=== PATIENT | male | born 2005 | race Hispanic/Latino ===

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

== ENCOUNTER → 2023-03-22 | Emergency (ER) | payer OTHER, SELFPAY ==
--- OUTSIDE RECORDS SUMMARY | 2023-03-22 18:13 | XMS REPORT | Continuity of Care Document ---
Author Name Unknown Address [address] [place] [address] [facility] Address 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 Name Role Phone ANN ESDRAS Primary Care Physician Unavailab Yani Romano Attending Clinician [phone] YANI QIU Attending Clinician Unavailable John Maurer MD Attending Clinician [phone] JOHN MAURER Attending Clinician Unavailabl e Doctor Unassigned, [place] Attending Clinician U navailable Only, Adc Test Attending Clinician Unavailable John Maurer MD Admitting Clinician [phone] JOHN MAURER Admitting Clinician Unavailabl e Payers Payer Name Policy Type Policy Number Effective Date Expirati on Date Source Problems Condition Name Condition Details Condition Category Status Onset Date Resolution Date Last Treatment Date Treating Clinician Comments Source Acute torn meniscus of knee, unspecifie d laterality , initial encounter Acute torn meniscus of knee, unspecifie d laterality , initial encounter Disease Active 06-11 00:00: 00 Overview: Added automatic ally from request for surgery [id number] [facility] No known active problems No known active problems Disease [facility] Allergies, Adverse Reactions, Alerts Allergy Name Allergy Type Status Severity Reaction(s) Onset Date Inactive Date Treating Clinician Comments Source NO KNOWN ALLERGIE S Drug Class Active [facility] Social History Social Habit Start Date Stop Date Quantity Comments Source Exposure to SARS-CoV-2 (event) Not sure [facility] History SDOH Alcohol Std Drinks [facility] History SDOH Alcohol Binge [facility] Tobacco use and exposure 2020-07-08 00:00:00 2020-07-08 00:00:[address] [facility] Alcohol intake 2020-07-08 00:00:00 2020-07-08 00:00:00 Lifetime non-drinker (finding) [facility] History SDOH Alcohol Frequency 2020-05-21 00:00:00 2020-05-21 00:00:[address] [facility] Sex Assigned At 2005 00:00:00 2005 00:00:[address] [facility] Smoking Status Start Date Stop Date Source Unknown [facility] Medications Ordered Medication Name Filled Medication Name Start Date Stop Date Current Medication? Ordering Clinician Indication Dosage Frequency Signature (SIG) Comments Components Source lactated ringers IV infusion 1,000 mL 06-21 18:30: 00 Yes 1000mL at 75 mL/hr, 1,000 mL, IV Infusion, CONTINUOUS , Starting Sun06/21/20 at 1330, Until Discontinu ed, Routine, PACU [facility] FENTanyl PF (SUBLIMAZE (PF)) injection 25 mcg 06-21 18:23: 23 Yes 25ug 25 mcg, Slow IV Push, Q5MIN PRN, 4 doses, Starting Sun06/21/20 at 1323, Until Discontinu ed, Routine, Pain (scale 4-6), PACU [facility] ondansetron (ZOFRAN (PF)) injection 4 mg 06-21 18:23: 23 Yes 4mg 4 mg, Slow IV Push, PRN, 1 dose, Starting Sun06/21/20 at 1323, Until Discontinu ed, Routine, Nausea and Vomiting (N/V), PACU [facility] lactated Ringers irrigation solution 06-21 17:37: 00 Yes PRN, Starting Sun06/21/20 at 1237, Until Discontinu ed, Routine, Intra-op [facility] bupivacaine -epinephrin e-pf (SENSORCAIN E W/EPINEPHRI NE) 0.25 %-1:200,000 injection 06-21 17:36: 00 Yes PRN, Starting Sun06/21/20 at 1236, Until Discontinu ed, Routine, Intra-op [facility] lactated ringers IV infusion 1,000 mL 06-21 14:00: 00 06-21 14:24 :00 No 1000mL at 42 mL/hr, 1,000 mL, IV Infusion, ONCE, 1 dose, Sun06/21/20 at 0900, Routine, DSU Pre-op [facility] aspirin 325 mg tablet 06-21 00:00: 00 07-20 04:59 :00 No [id number] 325mg Take 1 tablet by mouth 2 (two) times daily with meals for 28 days. [facility] aspirin 325 mg tablet 06-21 00:00: 00 07-20 04:59 :00 No [id number] 325mg Take 1 tablet by mouth 2 (two) times daily with meals for 28 days. [facility] aspirin 325 mg tablet 06-21 00:00: 00 07-20 04:59 :00 No [id number] 325mg Take 1 tablet by mouth 2 (two) times daily with meals for 28 days. [facility] aspirin 325 mg tablet 06-21 00:00: 00 07-20 04:59 :00 No [id number] 325mg Take 1 tablet by mouth 2 (two) times daily with meals for 28 days. [facility] aspirin 325 mg tablet 06-21 00:00: 00 07-20 04:59 :00 No [id number] 325mg Take 1 tablet by mouth 2 (two) times daily with meals for 28 days. [facility] aspirin 325 mg tablet 06-21 00:00: 00 07-20 04:59 :00 No [id number] 325mg Take 1 tablet by mouth 2 (two) times daily with meals for 28 days. [facility] acetaminoph en-codeine 300-30 mg tablet 06-21 00:00: 00 06-29 04:59 :00 No 4647 1{tbl} Take 1 tablet by mouth every 6 (six) hours as needed for Pain (scale 4-6) or Pain (scale 7-10) for up to 7 days. Indication s: acute pain [facility] acetaminoph en-codeine 300-30 mg tablet 3-29 00:00: 00 06-29 04:59 :00 No 4647 1{tbl} Take 1 tablet by mouth every 6 (six) hours as needed for Pain (scale 4-6) or Pain (scale 7-10) for up to 7 days. Indication s: acute pain [facility] metFORMIN 500 mg tablet 2-04 00:00: 00 Yes 500mg Take 500 mg by mouth 2 (two) times daily with meals. [facility] metFORMIN 500 mg tablet 04-29 00:00: 00 Yes 500mg Take 500 mg by mouth 2 (two) times daily with meals. [facility] metFORMIN 500 mg tablet 04-29 00:00: 00 Yes 500mg Take 500 mg by mouth 2 (two) times daily with meals. [facility] metFORMIN 500 mg tablet 2 00:00: 00 Yes 500mg Take 500 mg by mouth 2 (two) times daily with meals. [facility] metFORMIN 500 mg tablet 04-29 00:00: 00 Yes 500mg Take 500 mg by mouth 2 (two) times daily with meals. [facility] metFORMIN 500 mg tablet 04-29 00:00: 00 Yes 500mg Take 500 mg by mouth 2 (two) times daily with meals. [facility] metFORMIN 500 mg tablet 2 00:00: 00 Yes 500mg Take 500 mg by mouth 2 (two) times daily with meals. [facility] metFORMIN 500 mg tablet 2- 00:00: 00 Yes 500mg Take 500 mg by mouth 2 (two) times daily with meals. [facility] metFORMIN 500 mg tablet 0 2-04 00:00: 00 Yes 500mg Take 500 mg by mouth 2 (two) times daily with meals. [facility] metFORMIN 500 mg tablet 04-29 00:00: 00 Yes 500mg Take 500 mg by mouth 2 (two) times daily with meals. [facility] metFORMIN 500 mg tablet 04-29 00:00: 00 Yes 500mg Take 500 mg by mouth 2 (two) times daily with meals. [facility] metFORMIN 500 mg tablet 04-29 00:00: 00 Yes 500mg Take 500 mg by mouth 2 (two) times daily with meals. [facility] metFORMIN 500 mg tablet 04-29 00:00: 00 Yes 500mg Take 500 mg by mouth 2 (two) times daily with meals. [facility] metFORMIN 500 mg tablet 04-29 00:00: 00 Yes 500mg Take 500 mg by mouth 2 (two) times daily with meals. [facility] metFORMIN 500 mg tablet 04-29 00:00: 00 Yes 500mg Take 500 mg by mouth 2 (two) times daily with meals. [facility] metFORMIN 500 mg tablet 04-29 00:00: 00 Yes 500mg Take 500 mg by mouth 2 (two) times daily with meals. [facility] Vital Signs Vital Name Observation Time Observation Value Comments S alejandrochris Systolic blood pressure 2020-07-08 15:59:00 129 mm[Hg] [facility] Diastolic blood pressure 2020-07-08 15:59:00 77 mm[Hg] [facility] Heart rate 2020-07-08 15:59:00 72 /min [facility] Body height 2020-07-08 15:59:00 177.8 cm [facility] Body weight 2020-07-08 15:59:00 99.791 kg [facility] BMI 2020-07-08 15:59:00 31.57 kg/m2 [facility] Systolic blood pressure 2020-06-21 19:25:00 124 mm[Hg] [facility] Diastolic blood pressure 2020-06-21 19:25:00 67 mm[Hg] [facility] Heart rate 2020-06-21 19:25:00 74 /min [facility] Oxygen saturation in Arterial blood by Pulse oximetry 2020-06-21 19:25:00 100 /min [facility] Respiratory rate 2020-06-21 19:20:00 18 /min [facility] Body temperature 2020-06-21 14:06:[address] [facility] Body height 2020-06-17 15:14:00 177.8 cm [facility] Body weight 2020-06-17 15:14:00 99.8 kg [facility] BMI 2020-06-17 15:14:00 31.57 kg/m2 [facility] Systolic blood pressure 2020-06-11 14:24:00 136 mm[Hg] [facility] Diastolic blood pressure 2020-06-11 14:24:00 86 mm[Hg] [facility] Heart rate 2020-06-11 14:24:00 69 /min [facility] Body height 2020-06-11 14:24:00 177.8 cm [facility] Body weight 2020-06-11 14:24:00 99.791 kg [facility] BMI 2020-06-11 14:24:00 31.57 kg/m2 [facility] Systolic blood pressure 2020-05-21 14:41:00 131 mm[Hg] [facility] Diastolic blood pressure 2020-05-21 14:41:00 81 mm[Hg] [facility] Body height 2020-05-21 14:41:00 177.8 cm [facility] Body weight 2020-05-21 14:41:00 101.787 kg [facility] BMI 2020-05-21 14:41:00 32.20 kg/m2 [facility] Procedures Procedure Date / Time Performed Performing Clinicia n Source POCT GLUCOSE(AGE >30DAYS) 2020-06-21 14:20:[address] [facility] DAY SURGERY - ADC 2020-06-21 05:01:00 Doctor Katie ssigned, [place] [facility] ASSIGNMENT OF BENEFITS 2020-06-18 19:21:50 Docto r Unassigned, [place] [facility] DSU PRE-OP 2020-06-14 05:01:00 Doctor Unass igned, [place] [facility] DSU PRE-OP 2020-06-11 05:01:00 Doctor Unass igned, [place] [facility] MR KNEE RIGHT WO CONTRAST 2020-06-08 16:06:[address] [facility] REFERRAL- REQUEST/RESPONSE 2020-06-02 06:01:00 Doctor Unassigned, [place] [facility] ASSIGNMENT OF BENEFITS 2020-05-21 14:35:34 Bonifacioto r Unassigned, [place] [facility] Encounters Start Date/Time End Date/Time Encounter Type Admission Type Attending [facility] Facility Care Department Encounter ID Source 2023-02-12 17:37:30 2023-02-12 17:37:30 Outpatient [facility] [id number] Cast[place] 2022-12-16 09:59:07 2022-12-16 09:59:07 Outpatient [facility] [id number] Maykel Foreman Castillo 2022-10-04 16:03:58 2022-10-04 16:03:58 Outpatient [facility] [id number] Maykel Foreman Castillo 2022-04-14 17:39:52 2022-04-14 17:39:52 Outpatient [facility] [id number] Maykel Foreman Castillo 2022-04-12 10:59:09 2022-04-12 10:59:09 Outpatient [facility] [id number] Myakel Foreman Castillo 2020-07-08 10:46:54 2020-07-08 11:01:54 Office Visit Yani [facility] [place] [id number] 350.1.13.10 4.2.7.2.686 [id number] [facility] 2020-07-08 11:00:00 2020-07-08 11:00:00 Outpatient YANI JALLOH [facility] [id number] [facility] 2020-07-08 00:00:00 2020-07-08 00:00:00 [facility] [place] 1.2840.114 350.1.13.10 4.2.7.2.686 [id number] [facility] 2020-07-08 00:00:00 2020-07-08 00:00:00 Letter (Out) Lazarus [facility] huyen Azul 1.20.114 350.1.13.10 4.2.7.2.686 [id number] [facility] 2020-07-05 14:30:00 2020-07-05 14:30:00 Outpatient R YANI QIU [facility] [id number] [facility] 2020-06-21 08:55:00 2020-06-21 14:50:00 Hospital Encounter oJhn Maurer [facility] 1..114 350.1.13.10 4.2.7.2.686 [id number] [facility] 2020-06-21 08:55:00 2020-06-21 14:50:00 Outpatient R JOHN MAURER [facility] SOR [id number] [facility] 2020-06-21 00:00:00 2020-06-21 00:00:00 Orders Only Doctor Unassigned, [place] [facility] 1..114 350.1.13.10 4.2.7.2.686 [id number] [facility] 2020-06-18 14:23:42 2020-06-18 14:38:42 Laboratory Only Only, Adc Test John Maurer [facility] [id number] 350.1.13.10 4.2.7.2.686 [id number] [facility] 2020-06-18 12:00:00 2020-06-18 12:00:00 Outpatient R JOHN MAURER [facility] [id number] [facility] 2020-06-18 00:00:00 2020-06-18 00:00:00 Orders Only Doctor Unassigned, [place] [facility] 1.2.840.114 350.1.13.10 4.2.7.2.686 [id number] [facility] 2020-06-14 00:00:00 2020-06-14 00:00:00 Orders Only Doctor Unassigned, [place] [facility] 1.2.840.114 350.1.13.10 4.2.7.2.686 [id number] [facility] 2020-06-11 09:18:23 2020-06-11 09:33:23 Office Visit Yani Qiu [facility] [id number] 350.1.13.10 4.2.7.2.686 [id number] [facility] 2020-06-11 09:15:00 2020-06-11 09:15:00 Outpatient YANI JALLOH [facility] [id number] [facility] 2020-06-08 10:10:08 2020-06-08 23:59:00 Outpatient R JOHN MAURER [facility] [id number] [facility] 2020-06-08 10:00:00 2020-06-08 23:59:00 Hospital Encounter John Maurer [facility] [id number] 350.1.13.10 4.2.7.2.686 [id number] [facility] 2020-06-02 00:00:00 2020-06-02 00:00:00 Orders Only Doctor Unassigned, [place] [facility] 1.2.840.114 350.1.13.10 4.2.7.2.686 [id number] [facility] 2020-05-24 00:00:00 2020-05-24 00:00:00 Telephone John Maurer [facility]en Azul 1.2.840.114 350.1.13.10 4.2.7.2.686 [id number] [facility] 2020-05-21 08:36:26 2020-05-21 09:04:04 Office Visit John Maurer [facility] 1.2.840.114 350.1.13.10 4.2.7.2.686 [id number] [facility] 2020-05-21 08:45:00 2020-05-21 08:45:00 Outpatient R JOHN MAURER [facility] [id number] [facility] 2020-05-21 00:00:00 2020-05-21 00:00:00 Orders Only Doctor Unassigned, [place] [facility] [id number] 350.1.13.10 4.2.7.2.686 [id number] [facility] Results Test Description Test Time Test Comments Results Result Co mments Source POCT [id number] 14:20:00* Test Item Value Reference Range Interpretation Comme nts POCT Glu (age>30days) (test code = 3342) 127 mg/dL 70-110 A Lab Interpretation (test cod e = [id number]) [facility]normal [facility] [id number] 16:46:24 Complex full-thickness tear of the lateral meniscus body with a 1.3 cmlaterally extruded fragment. Minimal stress-induced marrow edema in the lateral femoral/tibial condylesand peripheral edges of the medial femoral condyle. The medial meniscus and the [...] No solid soft tissue masses are present. Demb, Radiant Results Inft User - 06/08/2020 11:47 AM CDTEXAM: MRI RIGHT KNEE WITHOUT CONTOURHISTORY: 15-year-old male complaining of chronic knee pain for one month.COMPARISON: NoneTECHNIQUE AND FINDINGS:1.5Tmultiplanar mul tiweighted MR imaging of the right knee was [...] the medial femoral condyle.The medial meniscus and thechondral surfaces are intact.The cruciate ligaments are intact.Preliminary Report Dictated by Resident: Minh Ha MD., have reviewed this study and agree with theabove report.[facility]
[2023-03-22 19:38] LABS: SARS-CoV-2 Antigen Rapid Res Negative (Negative)
--- NOTE | 2023-03-22 19:49 | RAD REPORT ---
EXAM DESCRIPTION: RAD - Chest Single View - 03/22/2023 7:39 pm CLINICAL HISTORY: PRODUCTIVE COUGH COMPARISON: No comparisons FINDINGS: Lines: None. Lungs: No evidence of edema or pneumonia. Pleural: No significant pleural effusions or pneumothorax. Cardiac: The heart size is within normal limits. Mediastinum: Within normal limits. Bones: No acute fractures. Other: None IMPRESSION: No acute cardiopulmonary disease.
--- NOTE | 2023-03-22 19:52 | EDPHYS ---
Physician Documentation [facility] Name: Chiki Downey Age: 18 yrs Sex: Male : 2005 Arrival Date: 03/22/2023 Time: 18:09 Bed 18 Private MD: ED Physician Antonio Hills HPI: 03/22 19:44 This 18 yrs old Male presents to ER via Ambulatory with complaints of ec2 Shortness Of Breath. 19:44 Patient arrives today for 2 days of URI signs and symptoms. Has having some congestion ec2 and cough as well as some bilateral rib pain. Reports that the pain is worse with positional movements. Patient reports pain with breathing as well. Patient denies any nausea or vomiting. Reports sick contacts.. Historical: - Allergies: 18:29 No Known Allergies; cm10 - PMHx: 18:29 diabetes mellitus; cm10 - Immunization history:: Adult Immunizations up to date. - Social history:: Smoking status: Patient reports the use of cigarette tobacco products, denies chronic smoking, but will smoke occasionally, Reported history of juuling and/or vaping. ROS: 19:44 Constitutional: as per hpi ec2 Exam: 19:44 Constitutional: GEN: NAD Head: atraumatic Eyes: EOMI Ears: External ears are ec2 normal. CV: regular rate LUNGS: no respiratory distress, no wheezes, rales, or rhonchi ABD: non-distended SKIN: no evidence of rashes MSK: no evidence of trauma, reproducible TTP to the bilateral ribs and upper chest wall. NEURO: moves all extremities equally Vital Signs: 18:29 BP 130 / 80; Pulse 82; Resp 18 S; Temp 97.9(O); Pulse Ox 100% on R/A; Weight 99.79 kg; cm10 Height 5 ft. 11 in. ; Pain 3/10; 19:00 BP 124 / 73; Pulse 86; Resp 16; Pulse Ox 99% on R/A; km8 19:30 BP 125 / 79; Pulse 76; Resp 16; Pulse Ox 99% on R/A; km8 18:29 Body Mass Index 30.68 (99.79 kg, 180.34 cm) cm10 18:29 Pain Scale: Adult cm10 [place] Coma Score: 19:06 Eye Response: spontaneous(4). Motor Response: obeys commands(6). Verbal Response: km8 oriented(5). Total: 15. MDM: 18:17 Patient medically screened. ec2 19:44 Data reviewed: vital signs. ED course: Patient arrives today for evaluation of chest ec2 pain and URI symptoms. Examination remarkable for well-appearing nontoxic individual is otherwise in no acute distress. Will suspicion for ACS or PE given the patient's general well appearance. Will obtain viral swab and EKG and chest x-ray.. 19:46 ED course: EKG independently reviewed and interpreted by me, shows normal sinus rhythm, ec2 rate of 76, no acute ST segment elevations, intervals are nonconcerning. . 19:48 ED course: Chest x-ray independently reviewed and interpreted by me, shows no acute ec2 intrathoracic process.. ED course: On reassessment patient is well-appearing in no acute distress. Will discharge home, instructed in biih-csh-ntsatza medications for likely costochondritis secondary to viral infection. Will also prescribe as needed albuterol inhaler.. 03/22 18:35 Order name: Influenza Screen (a \T\ B); Complete Time: 19:44 ec2 03/22 18:35 Order name: SARS RAPID; Complete Time: 19:44 ec2 03/22 18:35 Order name: CXR XRAY; Complete Time: 19:50 ec2 03/22 18:35 Order name: EKG; Complete Time: 18:35 ec2 03/22 18:35 Order name: EKG - Nurse/Tech; Complete Time: 19:53 ec2 Administered Medications: No medications were administered Disposition Summary: 03/22/23 19:52 Discharge Ordered Notes: Location: Home ec2 Condition: Stable ec2 Diagnosis - Viral infection, unspecified ec2 - Costochondritis ec2 Followup: ec2 - With: Private Physician - When: - Reason: Recheck today's complaints Discharge Instructions: - Discharge Summary Sheet ec2 - Costochondritis, Piow-fr-Zblo ec2 Forms: - Medication Reconciliation Form ec2 - Thank You Letter ec2 - Antibiotic Education ec2 - Prescription Opioid Use ec2 - Patient Portal Instructions ec2 - Leadership Thank You Letter ec2 Prescriptions: - albuterol sulfate 90 mcg/actuation Inhalation HFA Aerosol Inhaler - inhale 1 inhalation INHALATION route every 4 to 6 hours as needed for ec2 bronchospasm; administer via ventilator; 90 microgram; Refills: 0, Product Selection Permitted Signatures: Dispatcher [employer] Barbara Huerta RN RN cm10 Antonio Hills MD MD ec2
--- NOTE | 2023-03-22 19:52 | ER ---
Nurse's Notes [facility] Name: Chiki Downey Age: 18 yrs Sex: Male : 2005 Arrival Date: 03/22/2023 Time: 18:09 Bed 18 Private MD: Diagnosis: Viral infection, unspecified;Costochondritis Presentation: 03/22 18:29 Chief complaint: Patient states: rib pain that is worse with inspiration. Pt states cm10 that he has also been feeling more fatigued. Coronavirus screen: Vaccine status: Patient reports being unvaccinated. Client denies travel out of the [place] in the last 14 days. Ebola Screen: Patient denies travel to an Ebola-affected area in the 21 days before illness onset. No symptoms or risks identified at this time. Initial Sepsis Screen: Does the patient meet any 2 criteria? No. Patient's initial sepsis screen is negative. Does the patient have a suspected source of infection? No. Patient's initial sepsis screen is negative. Risk Assessment: Do you want to hurt yourself or someone else? Patient reports no desire to harm self or others. Onset of symptoms was March 22, 2023. 18:29 Method Of Arrival: Ambulatory cm10 18:29 Acuity: CHACHA 3 cm10 Triage Assessment: 18:31 General: Appears in no apparent distress. comfortable, Behavior is calm, cooperative. cm10 Pain: Complains of pain in chest. Neuro: No deficits noted. Level of Consciousness is awake, alert, obeys commands, Oriented to person, place, time, situation. Cardiovascular: No deficits noted. Patient's skin is warm and dry. Respiratory: No deficits noted. Reports pain with movement pain with respiration Airway Respiratory effort is even, unlabored, Respiratory pattern is regular, symmetrical, Onset: The symptoms/episode began/occurred gradually. Respiratory: the patient has mild shortness of breath. GI: No deficits noted. No signs and/or symptoms were reported involving the gastrointestinal system. : No deficits noted. No signs and/or symptoms were reported regarding the genitourinary system. Derm: No deficits noted. No signs and/or symptoms reported regarding the dermatologic system. Skin is intact, Skin is pink, warm \T\ dry. Historical: - Allergies: 18:29 No Known Allergies; cm10 - PMHx: 18:29 diabetes mellitus; cm10 - Immunization history:: Adult Immunizations up to date. - Social history:: Smoking status: Patient reports the use of cigarette tobacco products, denies chronic smoking, but will smoke occasionally, Reported history of juuling and/or vaping. Screenin:06 [facility] ED Fall Risk Assessment (Adult) History of falling in the last 3 months, km8 including since admission No falls in past 3 months (0 pts) Confusion or Disorientation No (0 pts) Intoxicated or Sedated No (0 pts) Impaired Gait No (0 pts) Mobility Assist Device Used No (0 pt) Altered Elimination No (0 pt) Score/Fall Risk Level 0 - 2 = Low Risk Oriented to surroundings, Maintained a safe environment, Educated pt \T\ family on fall prevention, incl call for assistance when getting out of bed, Assessed \T\ reinforced patient's understanding of fall precautions. Abuse screen: Denies threats or abuse. Denies injuries from another. Nutritional screening: No deficits noted. Tuberculosis screening: No symptoms or risk factors identified. Assessment: 19:06 General: Appears in no apparent distress. comfortable, Behavior is calm, cooperative, km8 appropriate for age. Pain: Complains of pain in chest Pain currently is 0 out of 10 on a pain scale. Neuro: Reyes Agitation-Sedation Scale (RASS): 0 - Alert and Calm Level of Consciousness is awake, alert, obeys commands, Oriented to person, place, time, situation. Cardiovascular: Reports chest pain, lightheadedness, shortness of breath, no chest pain at this time Capillary refill < 3 seconds Patient's skin is warm and dry. Rhythm is sinus rhythm Chest pain began 2 days ago is aggravated by activity, is alleviated by position. Respiratory: Airway is patent Respiratory effort is even, unlabored, Respiratory pattern is regular, symmetrical, Breath sounds are clear bilaterally. GI: No signs and/or symptoms were reported involving the gastrointestinal system. : No signs and/or symptoms were reported regarding the genitourinary system. EENT: No signs and/or symptoms were reported regarding the EENT system. Derm: Skin is intact, Skin is dry, Skin is pink, warm \T\ dry. Skin temperature is warm. Musculoskeletal: No signs and/or symptoms reported regarding the musculoskeletal system. Range of motion: intact in all extremities. Vital Signs: 18:29 BP 130 / 80; Pulse 82; Resp 18 S; Temp 97.9(O); Pulse Ox 100% on R/A; Weight 99.79 kg; cm10 Height 5 ft. 11 in. ; Pain 3/10; 19:00 BP 124 / 73; Pulse 86; Resp 16; Pulse Ox 99% on R/A; km8 19:30 BP 125 / 79; Pulse 76; Resp 16; Pulse Ox 99% on R/A; km8 18:29 Body Mass Index 30.68 (99.79 kg, 180.34 cm) cm10 18:29 Pain Scale: Adult cm10 [place] Coma Score: 19:06 Eye Response: spontaneous(4). Motor Response: obeys commands(6). Verbal Response: km8 oriented(5). Total: 15. ED Course: 18:12 Patient arrived in ED. ae5 18:17 Antonio Hills MD is Attending Physician. ec2 18:30 Triage completed. cm10 18:30 Arm band placed on Patient placed in waiting room. cm10 19:06 Patient has correct armband on for positive identification. Bed in low position. Call km8 light in reach. Side rails up X 1. Pulse ox on. NIBP on. Door closed. Noise minimized. 19:06 No provider procedures requiring assistance completed. Patient maintains SpO2 km8 saturation greater than 95% on room air. 19:41 CXR XRAY In Process Unspecified. EDMS 20:17 Provided Education on: d/c teaching. km8 20:17 Patient did not have IV access during this emergency room visit. km8 Administered Medications: No medications were administered Medication: 18:34 VIS not applicable for this client. cm10 Outcome: 19:52 Discharge ordered by . ec2 20:17 Discharged to home ambulatory, km8 20:17 Condition: good 20:17 Discharge instructions given to patient, Instructed on discharge instructions, follow up and referral plans. medication usage, Demonstrated understanding of instructions, follow-up care, medications, Prescriptions given X 1, 20:18 Patient left the ED. km8 Signatures: Dispatcher [employer] Barbara Huerta, RN RN cm10 Antonio Hills MD MD ec2 Angelic Olivo RN RN km8 Rachna Collier ae5
[2023-03-22 23:05] VITALS: BP 125/79; TEMP 97.9; O2SAT 99
--- NOTE | 2023-03-23 15:29 | EKG ---
Test Date: 2023-03-22 Test Time: 19:34:29 Mr Teacher: AUGUSTO MEASUREMENT RESULTS: Intervals: Rate: 76 CO: 140 QRSD: 92 QT: 356 QTc: 400 Velma: P: 34 CO: 140 QRS: 97 T: -4 INTERPRETIVE STATEMENTS: Normal sinus rhythm Normal ECG Compared to ECG 2003 07:24:00 Right-axis deviation no longer present Electronically Signed On 03-23-23 15:26:58 SIGNAL TIMER by Justin Carter
== END ==
LOC: ER 18:09
DX: B34.9 Viral infection, unspecified (principal); M94.0 Chondrocostal junction syndrome [Tietze]; Z11.52 Encounter for screening for COVID-19
CPT/HCPCS: 36415; 71045; 87804; 87811; 93005; 99284

== ENCOUNTER → 2023-05-02 | Emergency (ER) | payer SELFPAY ==
--- OUTSIDE RECORDS SUMMARY | 2023-05-02 18:11 | XMS REPORT | Continuity of Care Document ---
Author Name Unknown Address [address] [place] [address] [facility] thconnect Address [address] [place] [address] Care Team Providers Care Welder Apprentice Combination Name Role Phone ESDRAS JUAREZ Primary Care Physician Unavailab Yani Romano Attending Clinician [phone] YANI QIU Attending Clinician Unavailable John Maurer MD Attending Clinician [phone] JOHN MAURER Attending Clinician Unavailabl e Doctor Unassigned, [place] Attending Clinician U navailable Only, Adc Test Attending Clinician Unavailable John Maurer MD Admitting Clinician [phone] JOHN MAURER Admitting Clinician Unavailabl e Payers [...] Added automatic ally from request for surgery [id number] [facility] No known active problems No known active problems Disease [facility] Allergies, Adverse Reactions, Alerts Allergy Name Allergy Type Status Severity Reaction(s) Onset Date Inactive Date Treating Clinician Comments Source NO KNOWN ALLERGIE S Drug Class Active [facility] Social History Social Habit Start Date Stop Date Quantity Comments Source Exposure to SARS-CoV-2 (event) Not sure [facility] History SDOH Alcohol Std Drinks [facility] History SDOH Alcohol Binge [facility] Tobacco use and exposure 2020-07-08 00:00:00 2020-07-08 00:00:00 Never used [facility] Alcohol intake 2020-07-08 00:00:00 2020-07-08 00:00:00 Lifetime non-drinker (finding) [facility] History SDOH Alcohol Frequency 2020-05-21 00:00:00 2020-05-21 00:00:00 1 [facility] Sex Assigned At 2005 00:00:00 2005 00:00:00 [facility] Smoking Status Start Date Stop Date Source Unknown if [facility] Never sm[facility] Medications Ordered Medication Name Filled Medication Name Start Date Stop Date Current Medication? Ordering Clinician Indication Dosage Frequency Signature (SIG) Comments Components Source lactated ringers IV infusion 1,000 mL 06-21 18:30: 00 Yes 1000mL at 75 mL/hr, 1,000 mL, IV Infusion, CONTINUOUS , Starting Sun06/21/20 at 1330, Until Discontinu ed, Routine, PACU [facility] FENTanyl PF (SUBLIMAZE (PF)) injection 25 mcg 06-21 18:23: 23 Yes 25ug 25 mcg, Slow IV Push, Q5MIN PRN, 4 doses, Starting Sun06/21/20 at 1323, Until Discontinu ed, Routine, Pain (scale 4-6), PACU [facility] ondansetron (ZOFRAN (PF)) injection 4 mg 06-21 18:23: 23 Yes 4mg 4 mg, Slow IV Push, PRN, 1 dose, Starting Sun06/21/20 at 1323, Until Discontinu ed, Routine, Nausea and Vomiting (N/V), PACU [facility] lactated Ringers irrigation solution 06-21 17:37: 00 Yes PRN, Starting Sun06/21/20 at 1237, Until Discontinu ed, Routine, Intra-op [facility] bupivacaine -epinephrin e-pf (SENSORCAIN E W/EPINEPHRI NE) 0.25 %-1:200,000 injection 06-21 17:36: 00 Yes PRN, Starting Sun06/21/20 at 1236, Until Discontinu ed, Routine, Intra-op [facility] lactated ringers IV infusion 1,000 mL 06-21 14:00: 00 06-21 14:24 :00 No 1000mL at 42 mL/hr, 1,000 mL, IV Infusion, ONCE, 1 dose, Sun06/21/20 at 0900, Routine, DSU Pre-op [facility] aspirin 325 mg tablet 06-21 00:00: 00 07-20 04:59 :00 No [id number] 325mg Take 1 tablet by mouth 2 (two) times daily with meals for 28 days. [facility] aspirin 325 mg tablet 06-21 00:00: 00 07-20 04:59 :00 No [id number] 325mg Take 1 tablet by mouth 2 (two) times daily with meals for 28 days. [facility] aspirin 325 mg tablet 06-21 00:00: 00 07-20 04:59 :00 No [id number] 325mg Take 1 tablet by mouth 2 (two) times daily with meals for 28 days. [facility] aspirin 325 mg tablet 06-21 00:00: 00 07-20 04:59 :00 No [id number] 325mg Take 1 tablet by mouth 2 (two) times daily with meals for 28 days. [facility] aspirin 325 mg tablet 06-21 00:00: 00 07-20 04:59 :00 No [id number] 325mg Take 1 tablet by mouth 2 (two) times daily with meals for 28 days. [facility] aspirin 325 mg tablet 06-21 00:00: 00 07-20 04:59 :00 No [id number] 325mg Take 1 tablet by mouth 2 (two) times daily with meals for 28 days. [facility] acetaminoph en-codeine 300-30 mg tablet 06-21 00:00: 00 06-29 04:59 :00 No [id number] 1{tbl} Take 1 tablet by mouth every 6 (six) hours as needed for Pain (scale 4-6) or Pain (scale 7-10) for up to 7 days. Indication s: acute pain [facility] acetaminoph en-codeine 300-30 mg tablet 3-29 00:00: 00 06-29 04:59 :00 No 4647 1{tbl} Take 1 tablet by mouth every 6 (six) hours as needed for Pain (scale 4-6) or Pain (scale 7-10) for up to 7 days. Indication s: acute pain [facility] metFORMIN 500 mg tablet 2-04 00:00: 00 Yes 500mg Take 500 mg by mouth 2 (two) times daily with meals. [facility] metFORMIN 500 mg tablet 04-29 00:00: 00 Yes 500mg Take 500 mg by mouth 2 (two) times daily with meals. [facility] metFORMIN 500 mg tablet 204 00:00: 00 Yes 500mg Take 500 mg by mouth 2 (two) times daily with meals. [facility] metFORMIN 500 mg tablet 204 00:00: 00 Yes 500mg Take 500 mg by mouth 2 (two) times daily with meals. [facility] metFORMIN 500 mg tablet 2 00:00: 00 Yes 500mg Take 500 mg by mouth 2 (two) times daily with meals. [facility] metFORMIN 500 mg tablet 204 00:00: 00 Yes 500mg Take 500 mg by mouth 2 (two) times daily with meals. [facility] metFORMIN 500 mg tablet 0 2-04 00:00: 00 Yes 500mg Take 500 mg by mouth 2 (two) times daily with meals. [facility] metFORMIN 500 mg tablet 2-04 00:00: 00 Yes 500mg Take 500 mg by mouth 2 (two) times daily with meals. [facility] metFORMIN 500 mg tablet 2-04 00:00: 00 Yes 500mg Take 500 mg by mouth 2 (two) times daily with meals. [facility] metFORMIN 500 mg tablet 04-29 00:00: 00 Yes 500mg Take 500 mg by mouth 2 (two) times daily with meals. [facility] metFORMIN 500 mg tablet 04-29 00:00: 00 Yes 500mg Take 500 mg by mouth 2 (two) times daily with meals. [facility] metFORMIN 500 mg tablet 04-29 00:00: 00 Yes 500mg Take 500 mg by mouth 2 (two) times daily with meals. [facility] metFORMIN 500 mg tablet 04-29 00:00: 00 Yes 500mg Take 500 mg by mouth 2 (two) times daily with meals. [facility] metFORMIN 500 mg tablet 04-29 00:00: 00 Yes 500mg Take 500 mg by mouth 2 (two) times daily with meals. [facility] metFORMIN 500 mg tablet 04-29 00:00: 00 Yes 500mg Take 500 mg by mouth 2 (two) times daily with meals. [facility] metFORMIN 500 mg tablet 04-29 00:00: 00 Yes 500mg Take 500 mg by mouth 2 (two) times daily with meals. [facility] Vital Signs Vital Name Observation Time Observation Value Comments S inocente Systolic blood pressure 2020-07-08 15:59:00 129 mm[Hg] [facility] Diastolic blood pressure 2020-07-08 15:59:00 77 mm[Hg] [facility] Heart rate 2020-07-08 15:59:00 72 /min [facility] Body height 2020-07-08 15:59:00 177.8 cm [facility] Body weight 2020-07-08 15:59:00 99.791 kg [facility] BMI 2020-07-08 15:59:00 31.57 kg/m2 [facility] Systolic blood pressure 2020-06-21 19:25:00 124 mm[Hg] [facility] Diastolic blood pressure 2020-06-21 19:25:00 67 mm[Hg] [facility] Heart rate 2020-06-21 19:25:00 74 /min [facility] Oxygen saturation in Arterial blood by Pulse oximetry 2020-06-21 19:25:00 100 /min [facility] Respiratory rate 2020-06-21 19:20:00 18 /min [facility] Body temperature 2020-06-21 14:06:00 36.83 Estella [facility] Body height 2020-06-17 15:14:00 177.8 cm [facility] Body weight 2020-06-17 15:14:00 99.8 kg [facility] BMI 2020-06-17 15:14:00 31.57 kg/m2 [facility] Systolic blood pressure 2020-06-11 14:24:00 136 mm[Hg] [facility] Diastolic blood pressure 2020-06-11 14:24:00 86 mm[Hg] [facility] Heart rate 2020-06-11 14:24:00 69 /min [facility] Body height 2020-06-11 14:24:00 177.8 cm [facility] Body weight 2020-06-11 14:24:00 99.791 kg [facility] BMI 2020-06-11 14:24:00 31.57 kg/m2 [facility] Systolic blood pressure 2020-05-21 14:41:00 131 mm[Hg] [facility] Diastolic blood pressure 2020-05-21 14:41:00 81 mm[Hg] [facility] Body height 2020-05-21 14:41:00 177.8 cm [facility] Body weight 2020-05-21 14:41:00 101.787 kg [facility] BMI 2020-05-21 14:41:00 32.20 kg/m2 [facility] Procedures Procedure Date / Time Performed Performing Clinicia n Source POCT GLUCOSE(AGE >30DAYS) 2020-06-21 14:20:00 Terrence Tan [facility] DAY SURGERY - ADC 2020-06-21 05:01:00 Doctor Katie ssigned, [place] [facility] ASSIGNMENT OF BENEFITS 2020-06-18 19:21:50 Docto r Unassigned, [place] [facility] DSU PRE-OP 2020-06-14 05:01:00 Doctor Unass igned, [place] [facility] DSU PRE-OP 2020-06-11 05:01:00 Doctor Unass igned, [place] [facility] MR KNEE RIGHT WO CONTRAST 2020-06-08 16:06:32 John Maurer [facility] REFERRAL- REQUEST/RESPONSE 2020-06-02 06:01:00 Doctor Unassigned, [place] [facility] ASSIGNMENT OF BENEFITS 2020-05-21 14:35:34 Docto r Unassigned, [place] [facility] Encounters Start Date/Time End Date/Time Encounter Type Admission Type Attending [facility] Care Department Encounter ID Source 2023-02-12 17:37:30 2023-02-12 17:37:30 Outpatient SFA SFA [id number] Maykel Foreman [place] 2022-12-16 09:59:07 2022-12-16 09:59:07 Outpatient SFA SFA [id number] Maykel Foreman [place] 2022-10-04 16:03:58 2022-10-04 16:03:58 Outpatient SFA SFA [id number] Maykel Chong 2022-04-14 17:39:52 2022-04-14 17:39:52 Outpatient SFA SFA [id number] Maykel Ahsan [place] 2022-04-12 10:59:09 2022-04-12 10:59:09 Outpatient SFA SFA [id number] Maykel Ahsan Castillo 2020-07-08 10:46:54 2020-07-08 11:01:54 Office Visit Yani Qiu [facility]uyen [place] [id number] 350.1.13.10 4.2.7.2.686 [id number] [facility] 2020-07-08 11:00:00 2020-07-08 11:00:00 Outpatient YANI JALLOH [facility] [id number] [facility] 2020-07-08 00:00:00 2020-07-08 00:00:00 Letter (Out) Yani Qiu [facility] [place] [id number] 350.1.13.10 4.2.7.2.686 [id number] [facility] 2020-07-08 00:00:00 2020-07-08 00:00:00 Letter (Out) Lazarus [facility] h[facility] [place] [id number] 350.1.13.10 4.2.7.2.686 [id number] [facility] 2020-07-05 14:30:00 2020-07-05 14:30:00 Outpatient R YANI QIU [facility] [id number] [facility] 2020-06-21 08:55:00 2020-06-21 14:50:00 Hospital Encounter John Maurer [facility] 1..114 350.1.13.10 4.2.7.2.686 [id number] [facility] 2020-06-21 08:55:00 2020-06-21 14:50:00 Outpatient R JOHN MAURER [facility] SOR [id number] [facility] 2020-06-21 00:00:00 2020-06-21 00:00:00 Orders Only Doctor Unassigned, [place] [facility] 1..114 350.1.13.10 4.2.7.2.686 [id number] [facility] 2020-06-18 14:23:42 2020-06-18 14:38:42 Laboratory Only Only, Adc Test John Maurer [facility] 1.2840.114 350.1.13.10 4.2.7.2.686 [id number] [facility] 2020-06-18 12:00:00 2020-06-18 12:00:00 Outpatient R JOHN MAURER [facility] [id number] [facility] 2020-06-18 00:00:00 2020-06-18 00:00:00 Orders Only Doctor Unassigned, [place] [facility] 1.2.840.114 350.1.13.10 4.2.7.2.686 [id number] [facility] 2020-06-14 00:00:00 2020-06-14 00:00:00 Orders Only Doctor Unassigned, [place] [facility] 1.2840.114 350.1.13.10 4.2.7.2.686 [id number] [facility] 2020-06-11 09:18:23 2020-06-11 09:33:23 Office Visit Yani Qiu [facility] 1.2840.114 350.1.13.10 4.2.7.2.686 [id number] [facility] 2020-06-11 09:15:00 2020-06-11 09:15:00 Outpatient YANI JALLOH [facility] [id number] [facility] 2020-06-08 10:10:08 2020-06-08 23:59:00 Outpatient R JOHN MAURER [facility] [id number] [facility] 2020-06-08 10:00:00 2020-06-08 23:59:00 Hospital Encounter John Maurer [facility] [id number] 350.1.13.10 4.2.7.2.686 [id number] [facility] 2020-06-02 00:00:00 2020-06-02 00:00:00 Orders Only Doctor Unassigned, [place] [facility] 1.2.840.114 350.1.13.10 4.2.7.2.686 [id number] [facility] 2020-05-24 00:00:00 2020-05-24 00:00:00 Telephone John Maurer [facility] [place] 1.2.840.114 350.1.13.10 4.2.7.2.686 [id number] [facility] 2020-05-21 08:36:26 2020-05-21 09:04:04 Office Visit John Maurer [facility] [place] 1.2.840.114 350.1.13.10 4.2.7.2.686 [id number] [facility] 2020-05-21 08:45:00 2020-05-21 08:45:00 Outpatient R JOHN MAURER [facility] [id number] [facility] 2020-05-21 00:00:00 2020-05-21 00:00:00 Orders Only Doctor Unassigned, [place] [facility] [id number] 350.1.13.10 4.2.7.2.686 [id number] [facility] Results Test Description Test Time Test Comments Results Result Co mments Source POCT [id number] 14:20:00* Test Item Value Reference Range Interpretation Comme nts POCT Glu (age>30days) (test code = 3342) 127 mg/dL 70-110 A Lab Interpretation (test cod e = [id number]) Abnormal [facility] WO [id number] 16:46:24 Complex full-thickness tear of the lateral [...] No solid soft tissue masses are present. [facility], Radiant Results Inft User - 06/08/2020 11:47 [...] reviewed this study and agree with theabove report.[facility]
--- NOTE | 2023-05-02 19:31 | ER ---
Nurse's Notes [facility] Name: Chiki Downey Age: 18 yrs Sex: Male : 2005 Arrival Date: 05/02/2023 Time: 18:07 Bed 12 Private MD: Diagnosis: Influenza due to identified novel influenza A virus Presentation: 05/02 18:22 Chief complaint: Patient states: fever, cough, body aches, chills, started yesterday, ko1 lost sense of taste briefly today. Coronavirus screen: chills, congestion, cough unrelated to allergies, fatigue, fever, runny nose, loss of taste or smell, Client presents with at least one sign or symptom that may indicate coronavirus-19. Standard/surgical mask placed on the client. Ebola Screen: No symptoms or risks identified at this time. Initial Sepsis Screen: Does the patient meet any 2 criteria? No. Patient's initial sepsis screen is negative. Does the patient have a suspected source of infection? No. Patient's initial sepsis screen is negative. Risk Assessment: Do you want to hurt yourself or someone else? Patient reports no desire to harm self or others. Onset of symptoms was May 02, 2023. 18:22 Method Of Arrival: Ambulatory ko1 18:22 Acuity: CHACHA 4 ko1 Triage Assessment: 18:25 General: Appears in no apparent distress. ill, Behavior is calm, cooperative, ko1 appropriate for age. Pain: Complains of pain in generalized. Historical: - Allergies: 18:25 No Known Allergies; ko1 - PMHx: 18:25 diabetes mellitus; ko1 - PSHx: 18:25 None; ko1 - Immunization history:: Adult Immunizations up to date. - Social history:: Smoking status: Patient denies any tobacco usage or history of. Screenin:36 [facility] ED Fall Risk Assessment (Adult) History of falling in the last 3 months, ha1 including since admission No falls in past 3 months (0 pts) Confusion or Disorientation No (0 pts) Intoxicated or Sedated No (0 pts) Impaired Gait No (0 pts) Mobility Assist Device Used No (0 pt) Altered Elimination No (0 pt) Score/Fall Risk Level 0 - 2 = Low Risk Oriented to surroundings, Maintained a safe environment, Hourly rounding (assess needs \T\ fall precautionary measures) done. Abuse screen: Denies threats or abuse. Denies injuries from another. Nutritional screening: No deficits noted. Tuberculosis screening: No symptoms or risk factors identified. Assessment: 19:36 Reassessment: Patient and/or family updated on plan of care and expected duration. Pain ha1 level reassessed. Patient is alert, oriented x 3, equal unlabored respirations, skin warm/dry/pink. Vital Signs: 18:22 BP 162 / 102; Pulse 116; Resp 18; Temp 100.2; Pulse Ox 100% ; Weight 99.79 kg; Height 5 ko1 ft. 11 in. ; 19:36 BP 145 / 95; Pulse 101; Resp 20 S; Pulse Ox 99% on R/A; ha1 18:22 Body Mass Index 30.68 (99.79 kg, 180.34 cm) ko1 ED Course: 18:10 Patient arrived in ED. mg5 18:16 Luzmaria De Leon FNP-C [facility]. kb 18:16 Angelo Mishra MD is Attending Physician. kb 18:25 Triage completed. ko1 18:25 Arm band placed on right wrist. Patient placed in waiting room, Patient notified of ko1 wait time. 18:30 Flu Sent. ko1 18:30 COVID-19 SARS RT PCR Sent. ko1 18:30 Strep Sent. ko1 19:37 Patient has correct armband on for positive identification. Placed in gown. Bed in low ha1 position. Call light in reach. Side rails up X 1. 19:37 No provider procedures requiring assistance completed. Patient did not have IV access ha1 during this emergency room visit. 19:38 Provided Education on: medication administration . ha1 Administered Medications: No medications were administered Medication: 19:38 VIS not applicable for this client. ha1 Outcome: 19:30 Discharge ordered by . kb 19:37 Discharged to home ambulatory, with family, ha1 19:37 Condition: stable 19:37 Discharge instructions given to patient, Instructed on discharge instructions, follow up and referral plans. medication usage, Demonstrated understanding of instructions, follow-up care, medications, Prescriptions given X 1, 19:39 Patient left the ED. ha1 Signatures: Luzmaria De Leon FNP-C FNP-Ckb Ayala, Heidy, RN RN 1 Kim Rivera RN RN ko1 Kelsey Roth mg5
--- NOTE | 2023-05-02 19:31 | EDPHYS ---
Physician Documentation [facility] Name: Chiki Downey Age: 18 yrs Sex: Male : 2005 Arrival Date: 05/02/2023 Time: 18:07 Bed 12 Private MD: ED Physician Angelo Mishra HPI: 05/02 20:35 This 18 yrs old Male presents to ER via Ambulatory with complaints of Pain All kb Over, Cough - Chest pain when coughing, Fever. 20:35 Patient is a 18-year-old male who presents for fever, cough, body aches, chills, kb congestion and sore throat that started yesterday. Denies nausea, vomiting, diarrhea. Historical: - Allergies: 18:25 No Known Allergies; ko1 - PMHx: 18:25 diabetes mellitus; ko1 - PSHx: 18:25 None; ko1 - Immunization history:: Adult Immunizations up to date. - Social history:: Smoking status: Patient denies any tobacco usage or history of. ROS: 20:35 Abdomen/GI: Negative for abdominal pain, nausea, vomiting, diarrhea, and constipation, kb 20:35 Constitutional: Positive for body aches, chills, fatigue, fever, malaise, 20:35 ENT: Positive for sinus congestion, sore throat, 20:35 Respiratory: Positive for cough, 20:35 All other systems are negative, Exam: 20:35 Constitutional: This is a well developed, well nourished patient who is awake, alert, kb and in no acute distress. Head/Face: Normocephalic, atraumatic. ENT: Moist Mucous membranes Cardiovascular: Regular rate Respiratory: Respirations even and unlabored. No increased work of breathing. Talking in full sentences Abdomen/GI: Soft, non-tender. No distention Skin: Warm, dry with normal turgor. Normal color. MS/ Extremity: Pulses equal, no cyanosis. Neurovascular intact. Full, normal range of motion. Neuro: Awake and alert, GCS 15, oriented to person, place, time, and situation. Moves all extremities. Normal gait. Vital Signs: 18:22 BP 162 / 102; Pulse 116; Resp 18; Temp 100.2; Pulse Ox 100% ; Weight 99.79 kg; Height 5 ko1 ft. 11 in. ; 19:36 BP 145 / 95; Pulse 101; Resp 20 S; Pulse Ox 99% on R/A; ha1 18:22 Body Mass Index 30.68 (99.79 kg, 180.34 cm) ko1 MDM: 18:18 Patient medically screened. kb 20:36 Differential Diagnosis: Other Flu, COVID, strep, URI. Data reviewed: vital signs, kb nurses notes. Counseling: I had a detailed discussion with the patient and/or guardian regarding the historical points, exam findings, and any diagnostic results supporting the discharge/admit diagnosis, lab results, the need for outpatient follow up, a family practitioner, to return to the emergency department if symptoms worsen or persist or if there are any questions or concerns that arise at home. 05/02 18:25 Order name: Flu; Complete Time: 18:51 kb 05/02 18:25 Order name: COVID-19 SARS RT PCR; Complete Time: 19:30 kb 05/02 18:25 Order name: Strep; Complete Time: 18:51 kb 05/02 18:53 Order name: Throat Culture EDMS Administered Medications: No medications were administered Disposition Summary: 05/02/23 19:30 Discharge Ordered Notes: Location: Home kb Condition: Stable kb Diagnosis - Influenza due to identified novel influenza A virus kb Followup: kb - With: Emergency Department - When: As needed - Reason: Worsening of condition Followup: kb - With: Private Physician - When: 2 - 3 days - Reason: Recheck today's complaints, Continuance of care, Re-evaluation by your physician Discharge Instructions: - Discharge Summary Sheet kb - Influenza, Adult, [id number] kb Forms: - Medication Reconciliation Form kb - Thank You Letter kb - Antibiotic Education kb - Prescription Opioid Use kb - Patient Portal Instructions kb - Leadership Thank You Letter kb - Work release form ha1 Prescriptions: - Tamiflu 75 mg Oral capsule - take 1 tablet ORAL route every 12 hours for 5 days; 10 tablet; Refills: 0, kb Product Selection Permitted Signatures: Dispatcher [employer] EDLuzmaria Zhou FNP-C FNP-Kim Shrestha, RN RN ko1
== END ==
LOC: ER 18:07
DX: J10.1 Influenza due to other identified influenza virus with other respiratory manifestations (principal); Z11.52 Encounter for screening for COVID-19; E11.9 Type 2 diabetes mellitus without complications
CPT/HCPCS: 87070; 87081; 87635; 87804